=== PATIENT | female | born 1985 | race Caucasian/White ===

== ENCOUNTER → 2021-08-21 03:17 | Outpatient (CLI) | payer OTHER, SELFPAY ==
[2021-08-21 18:05] LABS: SARS-CoV-2 RNA PCR Negative
== END ==
PROVIDERS: PCP Family Medicine Adolescent Medicine; Visit Provider Family Medicine Adolescent Medicine
DX: Z20.822 Contact with and (suspected) exposure to COVID-19 (principal)
CPT/HCPCS: C9803; U0003; U0005

== ENCOUNTER → 2022-12-31 08:18 | Outpatient (CLI) | payer BC, SELFPAY ==
--- NOTE | ~2022-12-31 | MMUS_ITS ---
EXAMINATION: MM diagnostic emmanuel BI w summer, US breast BI complete HISTORY: Right breast mass felt by patient for one month, subareolar area TECHNIQUE: Full field and spot ML, MLO and CC 3-D tomosynthesis images of both breasts were performed and synthetic 2-D images were generated. CAD analysis was submitted and interpreted. High resolution bilateral complete breast ultrasound examination including all 4 quadrants and subareolar areas was performed. COMPARISON: None BREAST PARENCHYMAL COMPOSITION: The breasts are extremely dense, which lowers the sensitivity of mamm ography. FINDINGS: MAMMOGRAPHIC FINDINGS: Numerous scattered bilateral benign microcalcifications are noted, primarily punctate. No malignant c alcification is evident. No architectural distortion is detected. No skin thickening or retraction is identified. 3. 9 mm circumscribed mass with punctate microcalcifications suggested in the there are aspect of the lower outer left breast. Additional masses of either breast cannot be excluded due to the very dense stroma. Bilateral complete breast ultrasound examination therefore was performed. ULTRASOUND: Right breast: 3:00 2.5 cm from nipple, at the area of palpable abnormality there is a circumscribed 0.2 x 6.3 x 8.9 mm parallel largely sonolucent lesion with minimal internal echogenicity, with through transmission posterior enhancement, likely a mildly complicated benign cyst. 8:00 6 cm from nipple: There is a complex mixed solid and multi septated cystic lesion measuring 1 x 0.8 x 1.2 cm. There is some internal vascularity. Ultrasound-guided biopsy is recommended. 10:00 6.5 cm from nipple: 4.1 x 5.9 x 8 mm mildly complicated cyst 10:00 subareolar area: 5.7 x 11 x 6 mm cyst Subareolar: Septated 3.8 x 9.4 x 10 mm cyst without internal vascularity or posterior shadowing Left breast: 2:00 9 cm from nipple: Parallel circumscribed 2.2 x 5.8 x 7 mm circumscribed hypoechoic lesion withou t internal vascularity or posterior shadowing, benign in appearance 2:00 8 cm from nipple: Parallel circumscribed minimally septated 6.5 x 3.8 x 7.9 mm cyst without inte rnal vascularity or posterior shadowing, benign in appearance 2:00 7 cm from nipple: Parallel circumscribed hypoechoic 3.3 x 3.4 x 8.4 mm benign-appearing lesion w ithout internal vascularity or posterior shadowing 6:00 3 cm from nipple: Parallel circumscribed hypoechoic 3 x 6 x 7.5 mm lesion without internal vascu larity or posterior shadowing, benign in appearance 8:00 3 cm from nipple: Parallel circumscribed 4 x 12.6 x 7.7 mm complex mass with some internal vascu larity, no posterior shadowing; ultrasound-guided biopsy is recommended 11:00 5 cm from nipple: 3 x 5 5 x 6.8 mm sonolucency consistent with simple cyst IMPRESSION: 1. There is a suspicious complex mass with internal vascularity on each side, on the right at 8:00 an d on the left at 8:00 2. Ultrasound-guided biopsy of 2 lesions is recommended: Recommend ultrasound-guided biopsy of right breast 8:00 1 x 0.8 x 1.2 cm complex mixed solid and mult i septated cystic mass with internal vascularity Recommendation ultrasound-guided biopsy of left breast 8:00 4 x 12.6 x 7.7 mm complex mass 3 cm from nipple with internal vascularity BI-RADS category 4, suspicious findings. Dr. Lima telephoned the report and bilateral 8:00 ultrasound-guided breast biopsy recommendation on [facility] 2022 at 1015 hours to Harini Carlton. Reviewed, dictated and finalized at location A. MACHINE OPERATOR IMPRESSION: 1. There is a suspicious complex mass with internal vascularity on each side, o n the right at 8:00 and on the left at 8:00 2. Ultrasound-guided biopsy of 2 lesions is recommended: Recommend ultrasound-guided biopsy of right breast 8:00 1 x
== END ==
DX: N63.10 Unspecified lump in the right breast, unspecified quadrant (principal); R92.8 Other abnormal and inconclusive findings on diagnostic imaging of breast
CPT/HCPCS: 76641; 77062; 77066; G0279

== ENCOUNTER 2023-01-23 09:02 | Outpatient (CLI) | payer BC, SELFPAY ==
--- NOTE | ~2023-01-23 | MMUS_ITS ---
EXAMINATION: US breast biopsy RT w image, MM post biopsy invasive BI, US breast bx add lesion LT DATE: 01/23/2023 11:13 (accession [id number]), 01/23/2023 11:07 (accession [id number]), 01/14 11:35 (accession [id number]) INDICATION: Indeterminate masses in the lower outer right breast and lower inner left breast. Ultraso und-guided core biopsy is requested to evaluate for malignancy. TECHNIQUE AND FINDINGS: The risks and potential benefits of the procedure were discussed with the patient including bleeding and infection. A time out was performed. First, the skin of the right breast was prepared and draped in usual sterile fashion. 1% lidocaine was used for superficial anesthesia. 1% lidocaine with epineph rine was used for deep anesthesia. A vacuum-assisted biopsy needle was advanced through to the outer edge of the region of interest from an inferior approach utilizing sonographic guidance. A total of three tissue core samples were obtai tavo through the lesion. A tissue marker clip was then placed at the biopsy site. Hemostasis was achie sp. A sterile bandage was applied. Next, the skin of the left breast was prepared and draped in usual sterile fashion. 1% lidocaine was used for superficial anesthesia. 1% lidocaine with epinephrine was used for deep anesthesia. A vacuum-assisted biopsy needle was advanced through to the outer edge of the region of interest from an inferior approach utilizing sonographic guidance. A total of two tissue core samples were obtaine d through the lesion. A tissue marker clip was then placed at the biopsy site. Hemostasis was achieve d. A sterile bandage was applied. The patient tolerated procedure well and there was no evidence of immediate complication. The patient was given verbal instructions to return to the Emergency Department in the event of severe breast pa in or rapid breast enlargement. A two view bilateral mammogram was obtained to document tissue marker clip placement. IMPRESSION: 1. Successful ultrasound-guided vacuum-assisted biopsy of bilateral breast masses with tissue marker placement. Reviewed, dictated and finalized at location A. PY INSPECTOR IMPRESSION: 1. Successful ultrasound-guided vacuum-assisted biopsy of bilateral breast mass es with tissue marker placement. IMPRESSION: 1. Successful ultrasound-guided vacuum-assisted biopsy of bilateral breast mass es with tissue marker placement.
== END 2023-01-23 09:03 | disposition home or self-care (01) ==
DX: N63.13 Unspecified lump in the right breast, lower outer quadrant (principal); N63.24 Unspecified lump in the left breast, lower inner quadrant
CPT/HCPCS: 19083; 19084; 88305; A4648

== ENCOUNTER 2025-05-24 10:38 | Outpatient (CLI) | payer OTHER, SELFPAY ==
--- NOTE | ~2025-05-24 | MMUS_ITS ---
EXAMINATION: US breast BI complete, MM diagnostic emmanuel BI w summer HISTORY: Palpable bilateral breast masses. TECHNIQUE: Additional 3-D tomosynthesis images of the breasts were performed and synthetic 2-D images were generated. CAD analysis was submitted and interpreted. High resolution bilateral complete breas t ultrasound was performed. COMPARISON: Comparison to multiple prior studies sequentially, with oldest reviewed study dated 12/31. BREAST PARENCHYMAL COMPOSITION: Dense: The breasts are extremely dense, which lowers the sensitivity of mammography. FINDINGS: MAMMOGRAPHIC FINDINGS: Breasts are stable. No new masses, calcifications or architectural distortion. There are benign bilat eral breast calcifications. ULTRASOUND: Complete US of all 4 quadrants of the breast/s and retroareolar region was reviewed. There are multip le simple cysts of the breasts. There are no suspicious masses to suggest malignancy. There is a clus ter of microcysts in the right breast at 11:00, 4 cm from the nipple measuring 11 mm maximum dimensio n.. IMPRESSION: 1. No evidence for malignancy in either breast. Benign findings. 2. Routine yearly screening mammogram and regular clinical breast examination are recommended. BI-RADS Category 2: Benign finding(s). Reviewed, dictated and finalized at location A. IMPRESSION: 1. No evidence for malignancy in either breast. Benign findings. 2. Routine yearly screening mammogram and regular clinical breast examination a re recommended. BI-RADS Category 2: Benign finding(s).
--- OUTSIDE RECORDS SUMMARY | 2025-05-24 10:45 | XMS_ITS | Clinical Summary ---
Author Organization [facility] Address [address] [place] [address] Care Team Providers Care Rn Invasive Name Role Phone Unavailable Primary Care Provider Unavailabl e Immunizations Immunization Administration Dates Next Due MODERNA COVID-19 (12+) MRNA, LNP-S, PF, 100 MCG/ 0.5 ML DOSE 01/02/2021,12/05/2020 Social History Tobacco Use Types Packs/Day Years Used Date Smoking Tobacco: Never Assessed Comments Unknown Sex and Gender Information Value Date Recorded Sex Assigned at Not on file Legal Sex Female 2:30 PM [employer] Gender Identity Not on file Sexual Orientation Not on file Plan of Treatment Health Maintenance Due Date Last Done Comments Cervical Cancer Screening Pa p Smear (Age 30 to 64) Every 3 Years 1985 Annual Physical 1988 Hepatitis C 2003 Hepatitis B Vaccines (1 of 3 - 19+ 3-dose series) 2004 Cervical Cancer Screening Pa p with HPV Testing (Age 30 to 64) Every 5 Years 2015 Cervical Cancer Screening wi th HPV 2015 COVID-19 Vaccine (2023-2 5 season) 2024 01/02/2021, 12/05/2020 Mammogram Screening 2025 DTaP, Tdap and Td Vaccines ( 3 - Td or Tdap) 02/16/2030 02/17/2020, 11/16/2014 HPV Vaccines Aged Out No longer eligi ble based on patient's age to complete this topic Meningococcal B Vaccine Aged Out No l onger eligible based on patient's age to complete this topic Meningococcal Vaccine Aged Out No isiah zaira eligible based on patient's age to complete this topic Pneumococcal Vaccine: Pediatrics (0 to 5 Years) and At-Risk Patients (6 to 49 Years) Aged Out No longer eligible b ased on patient's age to complete this topic RSV Immunizations Under 20 Months Aged Out No longer eligible b ased on patient's age to complete this topic
--- OUTSIDE RECORDS SUMMARY | 2025-05-24 10:45 | XMS_ITS | Clinical Summary ---
Author Organization [facility] [address] [facility] Address [address] [place] [address] Care Team Providers Care Foot Doctor Name Role Phone Orquidea Mahoney NP Primary Care Provider Allergies Active Allergy Reactions Criticality Noted Date Comments Sulfa (Sulfonamide Antibiotics) Rash Medium 08/17 Medications 25/iron fum/folic/dha (-1 ORAL)Indications :Missed menses Take by mouth A ctive valACYclovir (VALTREX) 500 mg tablet 3 Active ubrogepant (UBRELVY) 100 mg tabletIndication s:Migraine with aura and with status migrainosus, not intractable Take 1 tablet (100 mg total) by mouth once as needed for migraine May repeat dose once in 2 hours if no relief. Do not exceed 2 doses in 24 hours. 10 tablet 1 4 Active Active Problems Problem Noted Date Diagnosed Date History of gestational diabetes 12/26/2022 HSV (herpes simplex virus) infection 09/22/2019 Overview (02/24/2020): History of genital herpes, no outbreaks in the current Recommendations: Valtrex 500 mg BID beginning at 36 weeks for suppressive therapy. Assessment & Plan (02/24/2020 1:45 PM CDT): Ms. Gonzalez has a history of genital HSV, no outbreaks in the current . I recommend Valtrex 500 mg BID beginning at 36 weeks for suppressive therapy. Resolved Problems Problem Noted Date Diagnosed Date Resolved Date Annual physical exam 03/18/2024 025 Assessment & Plan (03/18/2024 10:33 AM CDT): UTD on preventive care Follow-up 1 year for annual physical. Continue eating healthy. Limit processed foods like white starches, fast food, sweets and soda. Increase your vegetable intake and limit red meat. Continue exercising and wearing your seatbelt at all times. No texting and driving. Continue to manage your stress in a healthy manner. hemorrhage of vagina 12/26/2022 12/26/2022 Gestational diabetes mellitu s, delivered, current hospitalization 12/26/2022 12/26/2022 Gestational diabetes mellitus (GDM) *MFM 02/23/2020 05/25/2020 Overview (04/06/2020): CURRENT REGIMEN 04/06/2020 Metformin XL 500mg QAM - 3 hr GTT (02/02/20): 97/216/212/136 (3 of 4 elevated) - Hgb A1c (09/12/19): 4.7 - Last US (02/02/20) at 30w3 days: EFW 1533 grams, 69%ile, VIPUL 15.3, breech Recommendations: - Growth US ~36 weeks 1x/wk testing - Review of blood sugars q week - Delivery is recommended between 39-40 weeks - Will need 2 hr GTT Assessment & Plan (02/24/2020 2:10 PM CDT): Ms. Gonzalez was diagnosed with GDM based on a 3 hr GTT with 3 elevated values. We discussed goal fasting <95, 1h postprandial <135, and goal maternal wt gain 11-20 lbs. There is an increased risk of pre-eclampsia, macrosomia, delivery, shoulder dystocia, and IUFD, although all are related to glycemic control. Infants of DM mothers can have issues with: glycemic control, hyperbilirubinemia, respiratory distress, childhood obesity (metabolic syndrome) and carbohydrate intolerance. Further, there is an increased lifetime risk for pre-diabetes, type 2 diabetes, and CV disease. Goal will be to return to pre- wt. During the COVID-19 pandemic, in line with [facility]-ACOG published recommendations, we recommend growth ultrasounds every 6 weeks and NSTs starting once weekly until 36 weeks, and then twice weekly until delivery, if medications are used or blood sugar control is suboptimal. Additionally, we have provided Ms. Gonzalez with our contact information and blood sugar logs, and we have asked her to send us her blood sugars every week until delivery for review. Her glycemic control currently is good. We discussed delivery timing and I typically recommend between 39-40 weeks for GDM controlled with diet alone. Obesity complicating pregnan cy in second trimester 02/23/2020 05/25/2020 Overview (02/24/2020): Rec weight gain 11-20 lbs Assessment & Plan (02/24/2020 1:53 PM CDT): I discussed maternal obesity and weight gain in . Maternal obesity is associated with increased risk of gestational diabetes, macrosomia, and intrapartum complications such as increased risk of section and dysfunctional labor. Further, hypertensive diseases in are more commonly diagnosed in obese women. There may be a small increase in congenital anomalies in women who are obese, and ultrasound diagnosis of these anomalies may be limited by maternal body habitus. I recommend adherence to healthy diet and lifestyle. Supervision of high-risk pre gnancy, unspecified trimester 02/17/2020 05/25/2020 Overview (02/24/2020): [x] Co-management vs. [] Full [facility] Care; Referring Provider: Kathy Allan [phone] [x] Dating Criteria: LMP 07/14/19 with LORIE 04/19/20 [x] Labs: Rh [O+], Ab [not done], Rubella [immune], HIV [non-reactive], HepBSAg [non-reactive], RPR [non-reactive], GC/CT [not done] [] Genetic Screening: [x] CBC/Hgb not done [x] Early 1hr GTT (if indicated) 09/12/19: 168; 10/14/19 3hr: 79, 165, 133, 106 [] UCx: not done [x] Pap: 09/12/19 NILM; HPV negative [] LD ASA (if indicated) starting at 12 weeks: [] EPDS [ ]; PNBHS referral (if indicated) 2nd Tri Labs: [] Anatomy ultrasound: [x] CBC/1hr gtt at 24-28wks: 02/02/20: 13.4/39.4/plt 317; 3hr GTT: 97, 216, 133, 106 [x] Flu Shot (Jul-Oct):given 07/17/19 [] Tdap (27-36wks): [] Rhogam at 28 wks (if Rh neg): 3rd Tri Labs: [] CBC/HIV/RPR/T&S: [] GBS: [] GC/CT (if indicated): Counselling [] MOD: [] Place of delivery: [] MOC: [] Method of feeding: [] Hearing Aid Technician: [] PP Depression Discussed: Breech presentation of fetus 02/02/2020 04/06/2020 Overview (02/02/2020): 02/02/2020 @ 29wga GDM, class A2 02/02/2020 05/25/2020 Overview (02/02/2020): Referral sent to [facility]. Low-lying placenta 12/05/2019 0 Overview (12/05/2019): LLP 2.42cm 12/05/19; repeat US 28-32wks Supervision of normal first , antepartum 09/22/2019 05/25/2020 Overview (02/17/2020): First Trimester: [x] Labs [] Genetic Screeninnd Trimester: [x] Anatomy ultrasound 3rd Trimester: [x] CBC, HIV, syphilis screen [x] 1hr GCT (26-28wks): [x] Tdap (27-36wks) [] Rhogam (if Rh neg): [] GBS Encounters Date Type Department Care Team Description 05/02/2025 10:45 AM CDT Office Visit [facility] Obstetrical Gynecology [address] [place] [address] [address] [place] [address] Maribel Krause MD Family history of breast cancer (Primary Dx); Masses of both breasts; Dysmenorrhea; PMS (premenstrual syndrome); Well woman exam 03/22/2025 Telephone [facility] Family Medicine [address] [place] [address] Orquidea Mahoney NP PA request received for Ubrelvy from Last 3 Months Immunizations Immunization Administration Dates Next Due Influenza, Quadrivalent, Spl it, Intramuscular 08/16/2021,07/17/2019,09/13/2018 Influenza, Quadrivalent, Spl it, Preservative Free, Intramuscular 08/27/2022 Influenza, Unspecified 02/11/2024(Deferred: Sveta ent Refused) Moderna SARS-CoV-2 Monovalen t Vaccination (12+ YRS) 10/07/2021 Tdap 02/17/2020,11/16/2014 Varicella 03/18/2024(Deferred: History of disease) Surgical History Surgery Date Site/Laterality Comments LAPAROSCOPIC CHOLECYSTECTOMY 11/16/2017 - 11/15/2018 INGUINAL HERNIA REPAIR 1985 - 11/15/1986 Medical History Medical History Date Comments HSV-2 (herpes simplex virus 2) infection Kidney stones HSV-2 infection Asthma exercise Breech presentation of fetus 02/02/202001/14 @ 29wga Migraines Family History Medical History Relation Name Comments Asthma Brother Brother Diabetes Brother Brother Hypertension Brother Brother Arthritis Father Dad Diabetes Father Dad Hyperlipidemia Father Dad Hypertension Father Dad Breast cancer Maternal Grandmother Grandmother Cancer Maternal Grandmother Grandmother Endometrial cancer Maternal Grandmother Grandmother Hyperlipidemia Mother Mother Breast cancer Mother's Sister Cancer Paternal Grandfather Grandfather Prostate cancer Paternal Grandfather Grandfather Ovarian cancer Neg Hx Uterine cancer Neg Hx Relation Name Status Comments Brother Brother Alive Father Dad Alive Maternal Grandfather Maternal Grandmother Grandmother Mother Mother Alive Mother's Sister Paternal Grandfather Grandfather Paternal Grandmother Social History Tobacco Use Types Packs/Day Years Used Date Smoking Tobacco: Never Cigarettes Smokeless Tobacco: Never Tobacco Cessation:Counseling Given: Not Answered Alcohol Use Standard Drinks/Week Comments Not Currently 0 (1 standard drink = 0.6 oz pur e alcohol) AUDIT-C Answer Date Recorded Q1: How often do you have a drink containing alc ohol? 2-4 times a month 03/18/2024 Q2: How many drinks containi ng alcohol do you have on a typical day when you are drinking? 1 or 2 03/18/2024 Q3: How often do you have si x or more drinks on one occasion? Never 03/18/2024 PHQ-2 Answer Date Recorded PHQ-2 Total Score (If total score is 3 or more points, staff should administer the PHQ-9) 0 03/18/2024 [place] Depression Scale Answer Date Recorded [place] Depression Scale Total 2 05/25/2020 The thought of harming myself has occurred to me . Never 05/25/2020 Comments No Sex and Gender Information Value Date Recorded Sex Assigned at Not on file Legal Sex Female 3:35 AM [employer] Gender Identity Not on file Sexual Orientation Not on file Obstetrics History Para Term AB IAB SAB Ectopic Multiple Livin g Live Births 1 1 1 0 0 0 0 0 0 1 0 Date Outcome GA Total Labor Labor/2nd/3rd Weight Sex Type Anes PTL Alem A1 A5 Name Clin 2019 Term 39w 1d 3.289 kg (7 lb 4 oz) M Vag-S pont Epidur al N Luis Raines n, DO Complications:None Delivery Location:This [facility] Comments Last Filed Vital Signs Vital Sign Reading Time Taken Comments Blood Pressure 110/60 05/02/2025 10:48 AM CDT Pulse 54 03/18/2024 10:01 AM CDT Temperature 36.7 C (98.1 F) 03/18/2024 10:01 AM CDT Respiratory Rate 18 03/18/2024 10:01 AM CDT Oxygen Saturation 100% 03/18/2024 10:01 AM CDT Inhaled Oxygen Concentration - - Weight 64.9 kg (143 lb) 05/02/2025 10:48 AM CDT Height 154.9 cm (5' 1) 05/02/2025 10:48 AM CDT Body Mass Index 27.02 05/02/2025 10:48 AM CDT Plan of Treatment Health Maintenance Due Date Last Done Comments Breast Cancer Screening-Mammogram 1985 Hepatitis B Screening 2003 Covid-19 Vaccine ( season) 2024 10/07/2021, 01/02/2021, 12/05/2020 Depression Screening 03/18/2025 03/18/2024, 05/25/20 20 Influenza Vaccine (#1) 2025 4, 08/27/2022, 08/16/2021, Additional history exists Cervical Cancer Screening 12/26/2025 12/26/2022, Regular Well Visit/Exam 18-64 05/02/2026 05/02/2025, 03/18/2024, 12/26/2022, Additional history exists DTaP/Tdap/Td Vaccine (3 - Td or Tdap) 02/16/2030 02/17/2020, 11/16/2014 Hepatitis C Screening Completed 09/12/2019 HPV Vaccines Aged Out No longer eligi ble based on patient's age to complete this topic Pneumococcal vaccine <65 Aged Out No longer eligible based on patient's age to complete this topic Varicella Vaccines Discontinued Procedures Procedure Name Priority Date/Time Associated Diagnosis Comments PAP AND HIGH RISK HPV, REFLEX TO GENOTYPING Routine 12/26/2022 9:10 AM [employer]INSPRING STRIP INSPECTOR Well woman exam HEPATITIS C ANTIBODY Routine 09/12/2019 11:02 AM CDT from Last 3 Months or Most Recently Relevant to Health Maintenance Results * Pap and High Risk HPV, reflex to Genotyping (12/26/2022 9:10 AM MAINSPRING STRIP INSPECTOR) Thin prep (Pap test) 12/26/2022 9:10 AM MAINSPRING STRIP INSPECTOR 12/29/2022 9:10 AM MAINSPRING STRIP INSPECTOR Narrative PATHOLOGY [facility] - 12/31/2022 2:40 PM [employer]INSPRING STRIP INSPECTOR [facility] Department of Pathology [address] [place] [address] Final Report with Addendum Note to Patients: This report may contain a detailed description of human tissue sent by a health care provider to the laboratory for pathologic evaluation. The content of this report is essential for diagnosis and may provide important critical findings. This information may be unfamiliar to patients to review without a medical professional present. It is advised that the patient review this report in the presence of a health care provider who can answer questions and explain the details. Patient Name: NOÉ GONZALEZ Address: [address] [place], [place] [id number] Gender: F : 1985 (Age: 37) Service: Location: [facility] #: [id number] Patient Type: [facility] SPECIMEN Taken: 12/26/2022 Received: 12/29/2022 Accessioned:: 12/30/2022 Reported: 12/31/2022 Physician(s): La Krause M.D. [facility] Diagnosis: Source of Specimen: SCREENING THIN PREP IMAGED PAP w/ HPV: Specimen Adequacy: - Satisfactory for evaluation; endocervical/transformation zone component present General Categorization: - Negative for intraepithelial lesion or malignancy AMAYA Batista(ASCP) Report Electronically Reviewed and Signed Out By BABATUNDE BatistaASC) 12/31/2022 14:40:26Addenda: HPV Test Interpretation NEGATIVE for types 16, 18, 31, 33, 35, 39, 45, 51, 52, 56, 58, 59, 66 and 68. Test performed utilizing Gen-Probe Aptima assay. AMAYA Majano(ASCP)Report Electronically Reviewed and Signed Out By AMAYA Majano(ASC) 12/31/2022 10:34:01 Specimen(s) Received: A: SCREENING THIN PREP IMAGED PAP w/ HPV Clinical History: Last Menstrual Period: 12/06/2022 The Pap test is a screening test used to aid in the detection of cervical cancer and its precursors. It should not be the sole means by which malignant and premalignant lesions are diagnosed. Both false negative and false positive results may occur. It also has poor sensitivity for the detection of endometrial lesions and should not be used to evaluate suspected endometrial abnormalities. For these reasons it is most important to obtain Pap tests at regular intervals. The performance characteristics of some immunohistochemical stains, fluorescence in-situ hybridization tests and immunophenotyping by flow cytometry cited in this report (if any) were determined by the Surgical Pathology Department at [facility] as part of an ongoing business quality assurance analyst program and in compliance with federally mandated regulations drawn from the Clinical Laboratory Improvement Act of 1988 (CLIA '88). Some of these tests rely on the use of analyte specific reagents and are subject to specific labeling requirements by the US Food and Drug Administration. Such diagnostic tests may only be performed in a facility that is certified by the Department of Health and Human Services as a high complexity laboratory under CLIA '88. The FDA has determined that such clearance or approval is not necessary. This test is used for clinical purposes. It should not be regarded as investigational or for research. Nevertheless, federal rules concerning the medical use of analyte specific reagents require that the following disclaimer be attached to the report: This test was developed and its performance characteristics determined by the Surgical Pathology Department [facility]. It has not been cleared or approved by the U. S. Food and Drug Administration. Maribel Krause MD LAB CYTOLOGY ORDERABLES Fi nal Result Performing Organization Address City/[facility]/ZIP Co de Phone Number PATHOLOGY [facility] * Hepatitis C antibody (09/12/2019 11:02 AM CDT) Hep C Ab NON-REACT KIRSTIN NON-REACT KIRSTIN [facility] [place] SIGNAL TO CUT-OFF 0.01 <1.00 [facility] [place] Comment: HCV antibody was non-reactive. There is no laboratory evidence of HCV infection. In most cases, no further action is required. However, if recent HCV exposure is suspected, a test for HCV RNA (test code 77640) is suggested. For additional information please refer to http://education.Signal360 (formerly Sonic Notify)/faq/FBZ14t1 (This link is being provided for informational/ educational purposes only.) 09/12/2019 11:0 2 AM CDT 09/12/2019 11:07 AM CDT Narrative Resulting Agency Comment Performing Organization Information: Site ID: [place] Name: [facility] Address: [address] [address] Director: Nader Ramirez D.O., MPH Margie Ariza DO LAB MICROBIOLOGY - GEN ERAL ORDERABLES Final Result [facility] [place] from Last 3 Months or Most Recently Relevant to Health Maintenance Insurance [employer] [facility] CHOICE PLUS [employer] OPEN ACCESS [id number] [id number] Care Teams Foot Doctor Relationship Specialty Start Date End Date Orquidea Mahoney NP [address] [place] [address] PCP - General Family Medicine 03/18/24
--- OUTSIDE RECORDS SUMMARY | 2025-05-24 10:45 | XMS_ITS | Referral Summary ---
Author Organization [place] [id number] [facility] Address [address] [place] [address] Care Team Providers Care Surgery Manager Name Role Phone Orquidea Mahoney NP Primary Care Provider Encounters Date Type Department Care Team Description 05/02/2025 10:45 AM CDT Office Visit [facility] Obstetrical Gynecology [address] [facility] [place] [address] Maribel Krause MD Family history of breast cancer (Primary Dx); Masses of both breasts; Dysmenorrhea; PMS (premenstrual syndrome); Well woman exam 03/22/2025 Telephone [facility] Family Medicine [address] [place] [address] Orquidea Mahoney NP PA request received for Ubrelvy from Last 3 Months Allergies Active Allergy Reactions Criticality Noted Date [...] During the COVID-19 pandemic, in line with [facility] published recommendations, we recommend growth ultrasounds every [...] Overview (02/24/2020): [x] Co-management vs. [] Full [facility] Care; Referring Provider: Kathy Allan [phone] [x] Dating Criteria: LMP 07/14/19 with LORIE [...] [] MOC: [] Method of feeding: [] Check And Transfer Beader: [] PP Depression Discussed: Breech presentation of fetus 02/02/2020 04/06/2020 Overview (02/02/2020): 02/02/2020 @ 29wga GDM, class A2 02/02/2020 05/25/2020 Overview (02/02/2020): Referral sent to [facility]. Low-lying placenta 12/05/2019 0 Overview (12/05/2019): LLP 2.42cm 12/05/19; repeat US 28-32wks Supervision of normal first , antepartum 09/22/2019 05/25/2020 Overview (02/17/2020): First Trimester: [x] Labs [] Genetic Screeninnd Trimester: [x] Anatomy ultrasound 3rd Trimester: [x] CBC, HIV, syphilis screen [x] 1hr GCT (26-28wks): [x] Tdap (27-36wks) [] Rhogam (if Rh neg): [] GBS Immunizations Immunization Administration Dates Next Due Influenza, Quadrivalent, Spl it, Intramuscular 08/16/2021,07/17/2019,09/13/2018 Influenza, Quadrivalent, Spl it, Preservative Free, Intramuscular 08/27/2022 Influenza, Unspecified 02/11/2024(Deferred: Sveta ent Refused) Moderna SARS-CoV-2 Monovalen t Vaccination (12+ YRS) 10/07/2021 Tdap 02/17/2020,11/16/2014 Varicella 03/18/2024(Deferred: History of disease) Social History Tobacco Use Types Packs/Day Years [...] staff should administer the PHQ-9) 0 03/18/2024 [place] Depression Scale Answer Date Recorded [place] Depression Scale Total 2 05/25/2020 The thought of harming myself has occurred to me . 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 Gender Identity Not on file Sexual Orientation Not on file Last Filed Vital Signs Vital Sign Reading [...] 05/02/2025 10:48 AM CDT Plan of Treatment Not on file Procedures Procedure Name Priority Date/Time Associated Diagnosis Comments PAP AND HIGH RISK HPV, REFLEX TO GENOTYPING Routine 12/26/2022 9:10 AM AIRPLANE PILOT COMMERCIAL Well woman exam HEPATITIS C ANTIBODY Routine 09/12/2019 11:02 AM CDT from Last 3 Months or Most Recently Relevant to Health Maintenance Results * Pap and High Risk HPV, reflex to Genotyping (12/26/2022 9:10 AM AIRPLANE PILOT COMMERCIAL) Thin prep (Pap test) 12/26/2022 9:10 AM AIRPLANE PILOT COMMERCIAL 12/29/2022 9:10 AM AIRPLANE PILOT COMMERCIAL Narrative PATHOLOGY [facility] - 12/31/2022 2:40 PM AIRPLANE PILOT COMMERCIAL [facility] Department of Pathology [address] [place] [id number] Final Report with Addendum Note to Patients: [...] the details. Patient Name: NOÉ GONZALEZ Address: [address] [place] [id number] Gender: F : 1985 (Age: 37) Service: Location: N : [id number] [facility] #: [id number] Patient Type: [facility] SPECIMEN Taken: 12/26/2022 Received: 12/29/2022 Accessioned:: 12/30/2022 Reported: 12/31/2022 Physician(s): La Krause M.D. [facility] Diagnosis: Source of Specimen: SCREENING THIN PREP IMAGED PAP w/ HPV: Specimen Adequacy: - Satisfactory for evaluation; endocervical/transformation zone component present General Categorization: - Negative for intraepithelial lesion or malignancy AMAYA Batista(ASCP) Report Electronically Reviewed and Signed Out By AMAYA Batista(ASCP) 12/31/2022 14:40:26Addenda: HPV Test Interpretation NEGATIVE for types 16, 18, 31, 33, 35, 39, 45, 51, 52, 56, 58, 59, 66 and 68. Test performed utilizing Gen-Probe Aptima assay. AMAYA Majano(ASCP)Report Electronically Reviewed and Signed Out By BABATUNDE MajanoASCP) 12/31/2022 10:34:01 Specimen(s) Received: A: SCREENING THIN [...] determined by the Surgical Pathology Department at [facility] as part of an ongoing data quality consultant program and in compliance with federally mandated [...] MD LAB CYTOLOGY ORDERABLES Fi nal Result PATHOLOGY [facility] * Hepatitis C antibody (09/12/2019 11:02 AM CDT) Hep C Ab NON-REACT KIRSTIN NON-REACT KIRSTIN [facility] [place] SIGNAL TO CUT-OFF 0.01 <1.00 [facility] [place] Comment: HCV antibody was non-reactive. There is no laboratory evidence of HCV infection. In most cases, no further action is required. However, if recent HCV exposure is suspected, a test for HCV RNA (test code 98926) is suggested. For additional information please refer to http://education.Ourcast/faq/ADC64s9 (This link is being provided for informational/ educational purposes only.) 09/12/2019 11:0 2 AM CDT 09/12/2019 11:07 AM CDT Narrative Resulting Agency Comment Performing Organization Information: Site ID: [place] Name: [facility] Address: [address] [facility] [place] [address] Director: Nader Ramirez D.O., MPH Margie Ariza DO LAB MICROBIOLOGY - GEN ERAL ORDERABLES Final Result Performing Organization Address City/[facility] Co de Phone Number JARON SALMERON [employer] [place] from Last 3 Months or Most Recently Relevant to Health Maintenance [place] [place] [address] [facility] CHOICE PLUS CIG OPEN ACCESS Care Teams Surgery Manager Relationship Specialty Start Date End Date Orquidea Mahoney NP [address] [facility] [address] [place] [address] PCP - General Family Medicine 03/18/24
== END 2025-05-24 10:39 | disposition home or self-care (01) ==
PROVIDERS: Visit Provider Obstetrics & Gynecology
DX: R92.8 Other abnormal and inconclusive findings on diagnostic imaging of breast (principal); N63.10 Unspecified lump in the right breast, unspecified quadrant; N63.20 Unspecified lump in the left breast, unspecified quadrant; Z86.018 Personal history of other benign neoplasm
CPT/HCPCS: 76641; 77062; 77066; G0279